=== PATIENT | male | born 1965 | race Caucasian/White ===

== ENCOUNTER 2016-09-14 07:31 | Emergency (ER) | payer OTHER | END 2016-09-14 11:15 | disposition home or self-care (01) | LOC: ER1 07:31 | DX: S93.401A Sprain of unspecified ligament of right ankle, initial encounter (principal); S30.811A Abrasion of abdominal wall, initial encounter; W18.30XA Fall on same level, unspecified, initial encounter; Y92.009 Unspecified place in unspecified non-institutional (private) residence as the place of occurrence of the external cause; Z88.8 Allergy status to other drugs, medicaments and biological substances | CPT/HCPCS: 73590; 73610; 73630; 99283 ==

== ENCOUNTER → 2016-12-23 | Outpatient (CLI) | payer OTHER ==
[2016-12-23 12:21] LABS: HEMOGLOBIN 16.4 gm/dl (14.0-17.5); RED BLOOD COUNT 5.28 M/UL (4.20-5.50); WHITE BLOOD COUNT 5.2 K/UL (4.5-11.0)
[2016-12-23 12:39] LABS: BUN/CREATININE RATIO 24 (0-10)
== END ==
LOC: LAB 11:44
PROVIDERS: Family Medicine
DX: Z00.00 Encounter for general adult medical examination without abnormal findings (principal); E55.9 Vitamin D deficiency, unspecified; E78.5 Hyperlipidemia, unspecified; Z12.5 Encounter for screening for malignant neoplasm of prostate
CPT/HCPCS: 80053; 80061; 84439; 84443; 85027; G0103

== ENCOUNTER 2021-08-05 07:35 | Emergency (ER) | payer OTHER ==
[2021-08-05] MEDS ORDERED: HYDROCODON-ACE1 EAC4 PO (10:55)
== END 2021-08-05 11:34 | disposition home or self-care (01) ==
LOC: ER1 07:35
DX: S52.502A Unspecified fracture of the lower end of left radius, initial encounter for closed fracture (principal); S52.042A Displaced fracture of coronoid process of left ulna, initial encounter for closed fracture; W00.0XXA Fall on same level due to ice and snow, initial encounter; Y92.009 Unspecified place in unspecified non-institutional (private) residence as the place of occurrence of the external cause
CPT/HCPCS: 29125; 73080; 73110; 99283

== ENCOUNTER → 2021-08-23 | Outpatient (CLI) | payer OTHER ==
[~2021-08-23] MED LIST: HYDROCODON-ACE1 EAC4 PO
== END ==
LOC: KOH-I 10:04
DX: S53.105A Unspecified dislocation of left ulnohumeral joint, initial encounter (principal); S42.402A Unspecified fracture of lower end of left humerus, initial encounter for closed fracture; S52.042A Displaced fracture of coronoid process of left ulna, initial encounter for closed fracture; M25.422 Effusion, left elbow; X58.XXXA Exposure to other specified factors, initial encounter
CPT/HCPCS: 73200